=== PATIENT | male | born 1990 | race Caucasian/White ===

== ENCOUNTER 2018-10-05 06:53 | Emergency (ER) | payer OTHER ==
[~2018-10-05] VITALS: Ht 177.8 cm; Wt 124.7 kg
[2018-10-05 07:12] LABS: BASOPHILS ABSOLUTE AUTO 0.08 K/mm3 (0.00-0.23); BASOPHILS PERCENT AUTO 1 % (0-2); EOSINOPHILS ABSOLUTE AUTO 0.25 K/mm3 (0.00-0.68); EOSINOPHILS PERCENT AUTO 2 % (0-6); Hematocrit 45.9 % (37.0-53.0); Hemoglobin 15.5 g/dL (13.5-17.5); IMMATURE GRAN PERCENT AUTO 3 % (0-1); LYMPHOCYTES PERCENT AUTO 29 % (21-46); MONOCYTES ABSOLUTE AUTO 1.53 K/mm3 (0.16-1.47); MONOCYTES PERCENT AUTO 10 % (4-13); Mean Corpuscular HGB Conc 33.8 g/dL (31.5-36.5); Mean Corpuscular Volume 92 fL (80-100); Mean Platelet Volume 10.6 fL (9.1-12.4); NEUTROPHILS ABSOLUTE AUTO 8.49 K/mm3 (1.96-9.15); NEUTROPHILS PERCENT AUTO 56 % (41-73); Platelet Count 376 K/mm3 (150-400); RDW Coefficient Variation 11.7 % (11.7-14.2); RDW Standard Deviation 39.5 fL (35.1-46.3); White Blood Cell Count 15.15 K/mm3 (4.00-11.30)
[2018-10-05 07:31] LABS: Alanine Aminotransfer (ALT/SGP 33 U/L (12-78); Albumin, Blood 4.2 g/dL (3.4-5.0); Albumin/Globulin Ratio 1.3 (0.8-1.8); Alk Phos 72 U/L (50-136); Anion Gap 15 mmol/L (6-16); Aspartate Aminotrans (AST/SGOT 24 U/L (12-37); Bilirubin, Total 0.4 mg/dL (0.1-1.0); Blood Urea Nitrogen 13 mg/dL (8-24); Bun/Creatinine Ratio 19.7 (12.0-20.0); CO2, Blood 16 mmol/L (21-32); Calcium, Blood 8.9 mg/dL (8.5-10.1); Chloride, Blood 109 mmol/L (98-108); Creatinine, Blood 0.66 mg/dL (0.60-1.20); Globulin, Blood 3.3 g/dL (2.2-4.0); Glomerular Filtration Rate >60 (60-); Glucose, Blood 158 mg/dL (70-99); Potassium, Blood 3.8 mmol/L (3.5-5.5); Sodium, Blood 140 mmol/L (136-145); Total Protein, Blood 7.5 g/dL (6.4-8.2)
[2018-10-05] MEDS ORDERED: VERSED (08:02)
[2018-10-05 08:08] LABS: Carbamazepine <0.5 ug/mL (4.0-12.0)
[2018-10-05 11:03] LABS: Bilirubin, Urine Neg (Neg); Blood, Urine 1+ (Neg); Glucose Qualitative, Urine Neg (Neg); Ketones, Urine Neg (Neg); Leukocyte Esterase, Urine Neg (Neg); Nitrite, Urine Neg (Neg); Protein, Urine Neg (Neg); Urobilinogen, Urine NORM (Normal)
[2018-10-05 11:05] LABS: Appearance, Urine Clear (Clear); Color, Urine Yellow (P-Yellow)
[2018-10-05] MEDS ORDERED: Trileptal600 MG PO (11:15)
[2018-10-05 11:18] LABS: White Blood Cells, Urine Not Seen /hpf (0-5)
[2018-10-05 11:19] LABS: Red Blood Cells, Urine 0-2 /hpf (0-2)
[2018-10-05 11:20] LABS: Bacteria Not Seen /hpf; Squamous Epithelial Cells Not Seen /hpf (Few)
[2018-10-05 11:22] LABS: U Amphetamine Screen Not Detected; U Barbituate Screen Not Detected; U Benzodiazapine Screen Not Detected; U Buprenorphine Screen Not Detected; U Cannabinoids Screen DETECTED; U Cocaine Screen Not Detected; U Methadone Screen Not Detected; U Methamphetamine Screen Not Detected; U Opiates Screen Not Detected; U Oxycodone Screen Not Detected; U Phencyclidine Screen Not Detected; U Propoxyphene Screen Not Detected
== END 2018-10-05 11:35 | disposition home or self-care (01) ==
LOC: ER 06:53
PROVIDERS: Emergency Medicine
DX: G40.909 Epilepsy, unspecified, not intractable, without status epilepticus (principal)
CPT/HCPCS: 80053; 80156; 81001; 84443; 85025; 96361; 96374; 96375; 99284-25; J1885; J2550; J7030

== ENCOUNTER 2019-06-11 06:28 | Emergency (ER) | payer OTHER ==
[~2019-06-11] VITALS: Ht 188 cm; Wt 90.7 kg
[~2019-06-11 06:28] MED LIST: Trileptal600 MG PO; VERSED
[2019-06-11 07:30] LABS: Calcium, Ionized (POC) 1.13 mmol/L (1.10-1.46); Chloride (POC) 109 mmol/L (98-108); Creatinine (POC) 0.7 mg/dL (0.8-1.3); Glucose (ISTAT POC) 96 mg/dL (70-99); Potassium (POC) 4.4 mmol/L (3.5-5.5); Sodium (POC) 139 mmol/L (135-148); Total CO2 (POC) 22 mmol/L (21-32)
[2019-06-11 07:56] LABS: Carbamazepine <0.5 ug/mL (4.0-12.0)
== END 2019-06-11 09:04 | disposition home or self-care (01) ==
LOC: ER 06:28
PROVIDERS: Emergency Medicine
DX: G40.909 Epilepsy, unspecified, not intractable, without status epilepticus (principal); M54.5 Low back pain; G89.29 Other chronic pain; Z79.899 Other long term (current) drug therapy
CPT/HCPCS: 36415; 80047; 80156; 82947; 85014; 99285; A9270

== ENCOUNTER 2020-01-13 04:26 | Emergency (ER) | payer OTHER ==
[~2020-01-13] VITALS: Ht 175.3 cm; Wt 89.8 kg
[2020-01-13] MEDS ORDERED: CBD OIL (04:42)
[2020-01-13] MEDS ORDERED: LIDO700A20 TOP (04:59)
[2020-01-13] MEDS ORDERED: METPRE4DP PO (13:26)
[2020-01-13] MEDS ORDERED: Roxicodone5 MG PO (13:26)
[2020-01-13] MEDS ORDERED: CYCL10 PO (13:26)
== END 2020-01-13 05:10 | disposition home or self-care (01) ==
LOC: ER 04:26
DX: G89.29 Other chronic pain (principal); M54.5 Low back pain; F41.9 Anxiety disorder, unspecified; G40.909 Epilepsy, unspecified, not intractable, without status epilepticus; Z79.899 Other long term (current) drug therapy
CPT/HCPCS: 96374; 96375; 99283-25; J1200; J1630

== ENCOUNTER 2020-01-13 07:37 | Emergency (ER) | payer OTHER ==
[~2020-01-13] VITALS: Ht 175.3 cm; Wt 89.8 kg
[~2020-01-13 07:37] MED LIST changes: +CBD OIL; +LIDO700A20 TOP
[2020-01-13] MEDS ORDERED: CYCL10 PO (13:26)
[2020-01-13] MEDS ORDERED: Roxicodone5 MG PO (13:26)
[2020-01-13] MEDS ORDERED: METPRE4DP PO (13:26)
== END 2020-01-13 14:20 | disposition home or self-care (01) ==
LOC: ER 07:37
DX: M54.16 Radiculopathy, lumbar region (principal); Z87.891 Personal history of nicotine dependence
CPT/HCPCS: 36415; 72148; 96374; 96375; 96376; 99283-25; J1100; J1170; J2060; J2550

== ENCOUNTER 2020-02-21 10:11 | Emergency (ER) | payer OTHER ==
[~2020-02-21] VITALS: Ht 175.3 cm; Wt 96.2 kg
[~2020-02-21 10:11] MED LIST changes: +CYCL10 PO; +METPRE4DP PO; +Roxicodone5 MG PO
[2020-02-21 11:23] LABS: BASOPHILS ABSOLUTE AUTO 0.03 K/mm3 (0.00-0.23); BASOPHILS PERCENT AUTO 0 % (0-2); EOSINOPHILS ABSOLUTE AUTO 0.02 K/mm3 (0.00-0.68); EOSINOPHILS PERCENT AUTO 0 % (0-6); Hematocrit 45.9 % (37.0-53.0); Hemoglobin 15.9 g/dL (13.5-17.5); IMMATURE GRAN ABSOLUTE AUTO 0.13 K/mm3 (0.00-0.10); IMMATURE GRAN PERCENT AUTO 1 % (0-1); LYMPHOCYTES ABSOLUTE AUTO 1.29 K/mm3 (0.84-5.20); LYMPHOCYTES PERCENT AUTO 13 % (21-46); MONOCYTES ABSOLUTE AUTO 1.04 K/mm3 (0.16-1.47); MONOCYTES PERCENT AUTO 10 % (4-13); Mean Corpuscular HGB 30.9 pg (26.0-34.0); Mean Corpuscular HGB Conc 34.6 g/dL (31.5-36.5); Mean Corpuscular Volume 89 fL (80-100); Mean Platelet Volume 9.9 fL (9.1-12.4); NEUTROPHILS ABSOLUTE AUTO 7.52 K/mm3 (1.96-9.15); NEUTROPHILS PERCENT AUTO 75 % (41-73); Platelet Count 317 K/mm3 (150-400); RDW Coefficient Variation 11.5 % (11.7-14.2); RDW Standard Deviation 37.4 fL (35.1-46.3); Red Blood Cell Count 5.15 M/mm3 (4.30-5.90); White Blood Cell Count 10.03 K/mm3 (4.00-11.30)
[2020-02-21 11:45] LABS: Alanine Aminotransfer (ALT/SGP 85 U/L (12-78); Albumin, Blood 4.2 g/dL (3.4-5.0); Albumin/Globulin Ratio 1.1 (0.8-1.8); Alk Phos 82 U/L (50-136); Anion Gap 9 mmol/L (6-16); Aspartate Aminotrans (AST/SGOT 36 U/L (12-37); Bilirubin, Total 0.7 mg/dL (0.1-1.0); Blood Urea Nitrogen 10 mg/dL (8-24); Bun/Creatinine Ratio 16.6 (12.0-20.0); CO2, Blood 22 mmol/L (21-32); Calcium, Blood 9.3 mg/dL (8.5-10.1); Chloride, Blood 104 mmol/L (98-108); Globulin, Blood 3.7 g/dL (2.2-4.0); Glomerular Filtration Rate >60 (60-); Glucose, Blood 85 mg/dL (70-99); Potassium, Blood 4.3 mmol/L (3.5-5.5); Sodium, Blood 135 mmol/L (136-145); Total Protein, Blood 7.9 g/dL (6.4-8.2)
== END 2020-02-21 12:33 | disposition home or self-care (01) ==
LOC: ER 10:11
PROVIDERS: Emergency Medicine
DX: R06.00 Dyspnea, unspecified (principal); F41.9 Anxiety disorder, unspecified; G40.909 Epilepsy, unspecified, not intractable, without status epilepticus; Z88.8 Allergy status to other drugs, medicaments and biological substances; Z79.899 Other long term (current) drug therapy
CPT/HCPCS: 36415; 71045; 80053; 85025; 85379; 99283-25